=== PATIENT | male | born 1995 | race African-American/Black ===

== ENCOUNTER 2017-09-01 00:18 | Emergency (ER) | payer SELFPAY ==
[~2017-09-01] VITALS: Ht 172.7 cm; Wt 60.2 kg
[2017-09-01 02:57] VITALS: BP 130/77
== END 2017-09-01 02:55 ==
LOC: EME 00:18
PROC: 0HQ1XZZ Repair Face Skin, External Approach (ICD-10-PCS; principal; 2017-09-01)
DX: S01.111A Laceration without foreign body of right eyelid and periocular area, initial encounter (principal); W01.0XXA Fall on same level from slipping, tripping and stumbling without subsequent striking against object, initial encounter; Y35.893A Legal intervention involving other specified means, suspect injured, initial encounter; Y92.89 Other specified places as the place of occurrence of the external cause
CPT/HCPCS: 70450; 70480; 99281; 99284